=== PATIENT | female | born 1935 | race Caucasian/White ===

== ENCOUNTER → 2016-11-10 | Outpatient (CLI) | payer MEDICARE, BC ==
[~2016-11-10] MED LIST: ACET-2321 PO; AMLO10TA2 PO; ASPI-557 PO; ASPI-917 PO; BIFI4CAP PO; BOTOX IM; CLON0.5T4 PO; FURO20TA4 PO; HYDR-4246 PO; LEVO50TA11 PO; LINA145C PO; LISI-621 PO; OXYC5TAB84 PO; POLY17PO6 PO; POTA20TA10 PO; [UNRECOGNIZED DRUG - CODE] PO
[2016-11-10 12:20] LABS: ALBUMIN 4.1 G/DL (3.5-5.0); ALBUMIN/GLOBULIN RATIO 1.6 RATIO (1.1-2.2); ALKALINE PHOSPHATASE 87 U/L (38-126); ALT (SGPT) 35 U/L (9-52); ANION GAP 11 MEQ/L (5-15); AST (SGOT) 24 U/L (14-36); BUN/CREATININE RATIO 35 RATIO (6-26); CALCIUM 9.9 MG/DL (8.4-10.2); CHLORIDE 99 MEQ/L (98-107); CO2 - CARBON DIOXIDE 29 MEQ/L (22-30); CREATININE 0.8 MG/DL (0.7-1.2); GLOMERULAR FILTRATION RATE 69; GLUCOSE 98 MG/DL (65-110); LDH 480 U/L (313-618); MAGNESIUM 2.3 MG/DL (1.6-2.3); POTASSIUM 4.5 MEQ/L (3.6-5); SODIUM 139 MEQ/L (134-144); TOTAL PROTEIN 6.6 G/DL (6.3-8.2)
[2016-11-10 13:14] LABS: BASOPHILS % (AUTO) 0.2 % (0-2); EOSINOPHILS # (AUTO) 0.1 T/MM3 (0-0.5); EOSINOPHILS % (AUTO) 0.8 % (0-4); HCT - HEMATOCRIT 44.3 % (36-46); HGB - HEMOGLOBIN 13.9 GM/DL (12-16); IMMATURE GRANULOCYTE # (AUTO) 0.02 T/MM3 (0.00-0.03); IMMATURE GRANULOCYTE % (AUTO) 0.2 % (0.0-0.5); LYMPHOCYTES # (AUTO) 1.5 T/MM3 (1-4.8); LYMPHOCYTES % (AUTO) 15.8 % (23-45); MEAN CORPUSCULAR HGB 31.2 UUG (26-34); MEAN CORPUSCULAR HGB CONC(MCHC 31.4 GM/DL (31-37); MEAN CORPUSCULAR VOLUME 99.3 UM3 (80-100); MEAN PLATELET VOLUME 9.7 UM3 (9.4-12.4); MONOCYTES # (AUTO) 0.9 T/MM3 (0-0.8); MONOCYTES % (AUTO) 9.1 % (0-9.0); NEUTROPHILS #(AUTO)-ABSOLUTE 7.1 T/MM3 (1.8-7.7); NEUTROPHILS % (AUTO) 73.9 % (33-66); RED BLOOD COUNT 4.46 M/MM3 (4.00-5.20); WBC - WHITE BLOOD COUNT 9.6 T/MM3 (4.5-11.0)
== END ==
LOC: LAB 11:48
PROVIDERS: ATTEND Internal Medicine Hematology & Oncology
DX: D37.8 Neoplasm of uncertain behavior of other specified digestive organs (principal); R94.5 Abnormal results of liver function studies
CPT/HCPCS: 36415; 80053; 83615; 83735; 85025; 86301

== ENCOUNTER 2017-04-09 04:47 | Inpatient (IN) ==
[2017-04-09 05:55] VITALS: BMI 28.5
[2017-04-09] MEDS ORDERED: NOZIN NASAL SWAB NAS ONE ×2 (06:00→09:54)
[2017-04-09] MEDS ORDERED: METOCLOPRAMIDE 10mg/2ml INJECTION IVP ONE (06:00)
[2017-04-09] MEDS ORDERED: TRANEXAMIC ACID 1,000 MG in NS 100 ML IV ONE ×2 (06:00→07:00)
[2017-04-09] MEDS ORDERED: FAMOTIDINE PB 20 MG/50 ML BAG IV ONE (06:00)
[2017-04-09] MEDS ORDERED: ACETAMINOPHEN 500 MG TABLET PO ONE (06:00)
[2017-04-09] MEDS ORDERED: DEXAMETHASONE 4 MG/ML INJECTION IVP ONE (06:00)
[2017-04-09] MEDS ORDERED: ONDANSETRON 4 MG/2 ML INJECTION IVP ONE (06:00)
[2017-04-09] MEDS ORDERED: LIDOCAINE 1% (10mg/ml) 2mL INJ PF SDV ID ONE (06:00)
[2017-04-09] MEDS: LR 1,000 ML IV SCH ×2 (06:20→08:23)
[2017-04-09] MEDS ORDERED: SEVOFLURANE 250ml LIQUID IH ONE (06:33)
[2017-04-09] MEDS ORDERED: PROPOFOL 500 MG/50 ML VIAL IV ONE (06:34)
[2017-04-09] MEDS ORDERED: VANCOMYCIN 1,000 MG INJECTION ONE (06:43)
--- NOTE | 2017-04-09 06:43 | Anesthesia Preoperative Report ---
Anesthesia Preoperative Record - Date and Time Date: 04/09/17 Preoperative Diagnosis: LT TKA M17.12 Proposed Procedure: left TKA NPO Since Date: 04/09/17 NPO Since Time: 06:41 Allergies/Adverse Reactions: Allergies Allergy/AdvReac Type Severity Reaction Status Date / Time No Known Allergies Allergy Unverified 04/09/17 05:57 - Vital Signs Vital Signs: Temperature 97.9 F 04/09/17 05:54 Pulse Rate 87 04/09/17 05:54 Respiratory Rate 19 04/09/17 05:54 Blood Pressure 143/86 H 04/09/17 05:54 Pulse Oximetry 92 04/09/17 05:54 Height and Weight: Height 1.56 m Weight 69.8 kg Body Mass Index 28.5 - Medications Inpatient Medications: Current Medications Cefazolin Sodium (Kefzol) 2 g IVP PREOP ONE Stop: 04/09/17 07:01 Tranexamic Acid 1,000 mg/ (Sodium Chloride) 110 mls @ 660 mls/hr IV INTRAOP ONE Stop: 04/09/17 07:09 Lactated Ringer's (Lactated Ringers) 1,000 mls @ 50 mls/hr IV .Q20H AARON Last Admin: 04/09/17 06:20 Dose: 50 mls/hr Epinephrine HCl 0.25 mg/Bupivacaine HCl 30 ml/Morphine Sulfate 15 mg/Ketorolac Tromethamine 60 mg/Sodium Chloride 65.25 mls @ 1 mls/hr OPSITE INTRAOP ONE PRN Reason: Protocol Stop: 04/12/17 01:14 Sodium Chloride (Iv Flush) 10 - 80 ml IV PRN PRN PRN Reason: [place] Home Medications: Home Medications Medication Instructions Recorded Confirmed Type Amlodipine Besylate 10 mg PO DAILY #0 tab 06/11/16 04/09/17 History Aspirin [Aspir 81] 1 tab PO DAILY #0 tab 06/11/16 04/09/17 History Furosemide 20 mg PO DAILY PRN #0 tab 06/11/16 04/09/17 History Levothyroxine Sodium 50 mcg PO DAILY #0 tab 06/11/16 04/09/17 History Lisinopril 20 mg PO BID #0 06/11/16 04/09/17 History Polyethylene Glycol 3350 [Miralax] 1 packet PO DAILY #0 06/11/16 04/09/17 History Potassium Chloride [K-Dur] 20 meq PO DAILY PRN #0 06/11/16 04/09/17 History clonazePAM [Clonazepam] 0.5 tab PO HS #0 tab 06/11/16 04/09/17 History Calcium Carbonate [Tums Ultra] 1 tab PO QIDPRN PRN #0 07/21/16 04/09/17 History Acetaminophen [Tylenol] 650 mg PO QID PRN 03/12/17 04/09/17 History Beta-Carotene(A)-Vits C,E/Mins 1 each PO DAILY 03/12/17 04/09/17 History [Vision Vitamins] Hydrocodone/APAP 5/325 [[place] 1 - 2 tab PO Q4HPRN PRN 03/12/17 04/09/17 History 5/325] Ibuprofen [Advil] 200 mg PO QID PRN 03/12/17 04/09/17 History Lidocaine HCl [Aspercreme] 1 applic TP QID PRN 03/12/17 04/09/17 History Zoledronic Acid [Reclast] 5 mg IV 1 YEAR 03/12/17 04/09/17 History Tramadol HCl [Ultram] 50 mg PO TID PRN 04/01/17 04/09/17 History Multivitamin [One Daily] 1 each PO DAILY 04/09/17 04/09/17 History - Medical History Cardiovascular: Reports: Abnormal EKG, Hypertension Renal/Endocrine: Reports: Thyroid Disease - Surgical History HEENT Surgeries: Reports: Tonsillectomy GI Surgery/Treatments: Reports: Appendectomy, Cholecystectomy (Lap), Colon Resection (for diverticulitis), Colonoscopy (hx polyps) Musculoskeletal Surgery/Tx: Reports: Total Knee Replacement (Rt TKA ), Other (back surgery X2--not sure what kind) Anesthesia Reactions: None Hx Family Anesthesia Reaction: No History of Motion Sickness: No - Social History Smoking Status: Never smoker Hx Chewing Tobacco Use: No Second Hand Exposure: No Substance Use Type: does not use Alcohol Intake Frequency: does not drink - Pertinent Findings EKG: Sinus Rhythm EKG Ectopy: Bundle Branch Block - Physical Exam Respiratory Exam: Present: lungs clear Cardiovascular Exam: Present: regular rate and rhythm, no murmur - Airway Assessment Mallampati Score: II TMD: 3 Fingerbreadths Neck Extension: good Teeth: chipped teeth/crowns Overall Assessment: no airway concerns - ASA ASA Score: 3 - Plan Regional/Trunk Block: Spinal Peripheral Nerve Block: Saphenous-Right - Discussion Discussion: Discussed risks/options/alternatives of anesthesia and questions answered. Patient consents. Nursing pain assessment noted. Present for Discussion: spouse Attestation Statement: Prior to the delivery of any anesthetic medication, I examined the patient, developed the plan, obtained the patient's consent and discussed the risk and benefits of the procedure with the patient/guardian. - Additional Information Seen by Anesthesia: Yes
[2017-04-09] MEDS ORDERED: CEFAZOLIN 1 G INJECTION IVP ONE (07:00)
[2017-04-09] MEDS ORDERED: VANCOMYCIN 1,000 MG INJECTION IAR ONE (07:33)
[2017-04-09] MEDS ORDERED: EPINEPHrine 0.25 MG, BUPIVACAINE 0.25% PF 30 ML, MORPHINE SULFATE 15 MG, KETOROLAC INJ ... OPSITE ONE (08:00)
--- NOTE | 2017-04-09 08:30 | Operative Note ---
- Procedure Preoperative Diagnosis: Left knee primary degenerative joint disease Postoperative Diagnosis: Same as preoperative diagnosis. Surgeon: Tiana Mcmillan MD Airplane Captain: Eagle Mcdowell Complications: None. Anesthesia: Spinal. Estimated Blood Loss: See Anesthesia Record. Fluids: Please see Anesthesia Record. Description of Procedure: Mrs. Trinidad and her left knee were identified and marked in the preoperative holding area. She was brought back to the operating suite after a saphenous nerve block was placed in the preoperative holding area. Spinal anesthetic was administered and she was placed supine on the operating table. The left lower extremity was prepped and draped in my normal sterile fashion. Timeout was performed. The [email or web address] robot was used during the surgery. She had a correctable valgus deformity with a mild flexion contracture. A standard anterior midline incision followed by medial parapatellar arthrotomy was performed. Anterior fat pad and meniscus were removed. The patella was resurfaced to a size 29. A tibial array was placed in the most inferior aspect of the incision medial to the tibial tubercle. I then placed a second femoral array again using bicortical pins in the distal femoral metaphysis medially. Checkpoints were then placed both in the femur and the tibia. The bone was then registered with the [email or web address] robot. Osteophytes were removed and gaps were captured both 90 and 0 with correction. [email or web address] software was used to balance the knee which took minimal manipulation since she was very correctable. The [email or web address] robotic arm was then used to assist with the bone cuts. Posterior osteophytes and remaining meniscus were removed. Trial components were placed. We used a 3 femur and a 4 tibia with a 9 mm spacer. She tracked well and was well balanced throughout range of motion. The leg was exsanguinated and the tourniquet inflated to 250 mmHg. The bone was prepared for cementing and components were cemented into place and allowed to cure in extension. The tourniquet was let down and hemostasis obtained with electrocautery. The knee was ranged one more time to ensure good stability, balance and patellar tracking. 1 g of vancomycin powder was then placed into the knee joint. The capsulotomy was then closed with #1 Vicryl. I then left my higher level teaching assistant to close the subcutaneous tissue with 2-0 Vicryl. Running 4-0 Monocryl will be used in the subcuticular layer. Dermabond will be used on the skin followed by sterile dressing. After drapes are removed patient will be taken to recovery room under the care of anesthesia.
[2017-04-09] MEDS ORDERED: SALINE FLUSH 10ml SYRINGE ONE (08:36)
[2017-04-09] MEDS ORDERED: EPHEDRINE 50mg/ml INJECTION ONE (08:36)
--- NOTE | 2017-04-09 08:52 | History & Physical Update ---
- History and Physical Update Date: 04/09/17 Update: I evaluated this patient and found no changes in the history and clinical exam findings. The treatment plan and recommendations are also unchanged from the previous documentation.
[2017-04-09] MEDS ORDERED: ROPIVACAINE 0.5% (5mg/ml) 30ml INJ ONE (08:58)
--- NOTE | 2017-04-09 09:13 | Anesthesia Procedure Note ---
Peripheral Nerve Blockade - Procedure Physician: Thomas Mcmillan MD Date: 04/09/17 Surgical Procedure: left TKA Discussion: Discussed risks/options/alternatives of anesthesia and questions answered. Patient consents. Nursing pain assessment noted. Block Start: 09:06 Block Stop: 09:08 Blocked Employed: Adductor Canal Indication: Post-Operative Pain Approach: Left Side Confirmed Position: Supine Patient: Consent, Risks/Benefits Discussed, Informed, Post Block Act. Discussed IV Sedation: No Initial Vital Signs: Temperature 97.9 F 04/09/17 05:54 Temperature Source Oral 04/09/17 05:54 Pulse Rate 87 04/09/17 05:54 Respiratory Rate 19 04/09/17 05:54 Blood Pressure 143/86 H 04/09/17 05:54 Blood Pressure Mean 105 04/09/17 05:54 Blood Pressure Position Sitting 04/09/17 05:54 Pulse Oximetry 92 04/09/17 05:54 Oxygen Delivery Method 04/09/17 05:54 Post Vital Signs: Temperature 97.9 F 04/09/17 05:54 Pulse Rate 87 04/09/17 05:54 Respiratory Rate 19 04/09/17 05:54 Blood Pressure 143/86 H 04/09/17 05:54 Pulse Oximetry 92 04/09/17 05:54 Initial Pain Pain Score: 0 Post Block Pain Score: 0 Ultrasound Used?: Yes - Injectate Ropivacaine (%): 0.5 Ropivacaine (mL): 20 Was Epi 1:200,000 Used?: No Injection: Injection made incrementally with constant monitoring and aspiration every ml
--- NOTE | 2017-04-09 09:39 | XRay Report ---
Indication: postoperative image PROCEDURE: XR knee LT 2V: Encounter: Initial Comparison: March 11, 2017 Findings: Postoperative changes of left total knee replacement are seen. There is expected postoperative subcutaneous gas. No evidence of hardware failure or acute fracture. No retained radiopaque surgical instruments or sponges. Overlying material causing artifact. Impression: New left total knee prosthesis without evidence of immediate complication. .
--- NOTE | 2017-04-09 09:49 | Anesthesia Postoperative Note ---
- Date and Time Date: 04/09/17 Time: 09:47 - Status Patient Participated in Evaluation: Patient Participated in Person Vital Signs: Temperature 97.3 F 04/09/17 09:01 Pulse Rate 76 04/09/17 09:35 Respiratory Rate 19 04/09/17 05:54 Blood Pressure 123/57 04/09/17 09:35 Pulse Oximetry 93 04/09/17 09:35 Respiratory Function: Airway Patent Cardiovascular Function: Regular Pulse EKG: Sinus Rhythm EKG Ectopy: Bundle Branch Block Mental Status: Alert and Oriented Pain Intensity: 0 Hydration: Taking PO Fluids, IV Infusing Complications During Recover: None Apparent - Follow-Up Instructions Instructions: Per Surgeon
[2017-04-09] MEDS ORDERED: ONDANSETRON 4 MG/2 ML INJECTION IVP PRN (09:54)
[2017-04-09] MEDS ORDERED: ACETAMINOPHEN 325 MG TABLET PO PRN (09:54)
[2017-04-09] MEDS ORDERED: DiphenhydrAMINE 25 MG CAPSULE PO PRN (09:54)
[2017-04-09] MEDS ORDERED: DiphenhydrAMINE 50 MG/ML INJECTION IVP PRN (09:54)
[2017-04-09] MEDS ORDERED: NAPROXEN 220 MG TABLET PO PRN (09:54)
[2017-04-09] MEDS ORDERED: FUROSEMIDE 20 MG TABLET PO PRN (09:54)
[2017-04-09] MEDS ORDERED: LEVOTHYROXINE 50 MCG TABLET PO SCH (09:54)
[2017-04-09] MEDS ORDERED: Oxycodone *IR* 5 MG TABLET PO PRN (09:54)
[2017-04-09] MEDS ORDERED: AMLODIPINE 10 MG TABLET PO SCH ×2 (09:54→21:00)
[2017-04-09] MEDS ORDERED: LORazepam 1 MG TABLET PO PRN (09:54)
[2017-04-09] MEDS: POLYETHYL GLYCOL 3350 17gm PACKET PO SCH (10:09)
[2017-04-09] MEDS: NS 1,000 ML IV SCH ×2 (10:10→14:17)
[2017-04-09] MEDS: DOCUSATE SODIUM 100 MG CAPSULE PO SCH ×2 (10:10→21:17)
[2017-04-09] MEDS: LISINOPRIL 20 MG TABLET PO SCH ×2 (10:10→21:24)
[2017-04-09] MEDS: NOZIN NASAL SWAB NAS SCH ×2 (14:43→21:29)
[2017-04-09] MEDS ORDERED: SALINE FLUSH 10ml SYRINGE IV PRN (15:12)
[2017-04-09] MEDS: CEFAZOLIN 2 G in NS 100 ML IV SCH ×2 (16:28→22:57)
[2017-04-09] MEDS ORDERED: SENNOSIDES 8.6 MG TABLET PO SCH (21:00)
[2017-04-09] MEDS ORDERED: ClonazePAM 0.5 MG TABLET PO SCH (21:00)
[2017-04-09] MEDS ORDERED: ACETAMINOPHEN 325 MG TABLET PO SCH (21:00)
[2017-04-09] MEDS: ASPIRIN *EC* 81 MG TABLET PO SCH (21:23)
[2017-04-10] MEDS: NS 1,000 ML IV SCH (04:14)
--- NOTE | 2017-04-10 06:20 | Orthopedic Progress Note ---
Date: Subjective/Severity of Illness: Imelda is doing well. Pain is controlled. She had some confusion overnight but thought it was from the Roxicodone and anesthesia. Confusion resolved this AM. No CP or SOA. She has been with good tolerance. Orthopedic Objective PO Vital signs: Temperature 98.3 F 04/10/17 03:00 Pulse Rate 89 04/10/17 03:00 Respiratory Rate 15 04/10/17 03:00 Blood Pressure 127/66 04/10/17 03:00 Pulse Oximetry 97 04/10/17 03:00 Height and Weight: Height 5 ft 1.5 in Weight 153 lb 14.122 oz Body Mass Index 28.5 - Constitutional General Appearance: Present: alert, orientated x3, no acute distress - Respiratory Exam Present: non-labored - Extremities Exam Extremities: Present: pulses intact, normal capillary refill - Surgical Site Incision: Mepilex dressing intact, no drainage - Integumentary Exam Present: pink, warm, dry - Neurological Exam Present: no deficits - Psychiatric Exam Present: alert, oriented, normal affect - Labs Result Diagrams: 04/10/17 04:19 04/10/17 04:19 Abnormal lab results 04/10/17 04/10/17 Range/Units 04:19 04:19 WBC 14.3 H (4.5-11.0) T/MM3 RBC 3.42 L (4.00-5.20) M/MM3 Hgb 10.6 L (12-16) GM/DL Hct 33.9 L (36-46) % Calcium 8.2 L (8.4-10.2) MG/DL H & H 04/10/17 Range/Units 04:19 Hgb 10.6 L (12-16) GM/DL Hct 33.9 L (36-46) % Orthopedic Assessment and Plan (1) Primary osteoarthritis of left knee Status: Acute Assessment and Plan: Current anti-coagulation protocol for VTE prophylaxis. SCD's. Change from Roxicodone to Hydrocodone per pt request. PT/OT services to improve independent function. Discharge Planning per Case Management. WBC is mildly elevated but she is afebrile and has no s/sx of infection Likely a stress response. Monitor.. - Anticoagulation Therapy Anticoagulation: other Hospital Course Summary Disclaimer: The visit summary below is not to be considered part of the above Progress Note.
[2017-04-10] MEDS: NOZIN NASAL SWAB NAS SCH ×2 (06:28→14:45)
[2017-04-10] MEDS ORDERED: LEVOTHYROXINE 50 MCG TABLET PO SCH (06:30)
[2017-04-10] MEDS ORDERED: HYDROCODONE/APAP 7.5 MG/325 MG TABLET PO PRN (07:31)
[2017-04-10] MEDS: POLYETHYL GLYCOL 3350 17gm PACKET PO SCH (08:34)
[2017-04-10] MEDS: LISINOPRIL 20 MG TABLET PO SCH (08:34)
[2017-04-10] MEDS: ASPIRIN *EC* 81 MG TABLET PO SCH (08:35)
[2017-04-10] MEDS: DOCUSATE SODIUM 100 MG CAPSULE PO SCH (08:35)
[2017-04-10] MEDS ORDERED: SENNOSIDES 8.6 MG TABLET PO PRN (08:56)
[2017-04-10 11:45] VITALS: BP 114/54; PULSE 66; RESP 18; TEMP 98.2; O2SAT 91
--- NOTE | 2017-04-10 13:44 | Discharge Summary ---
Orthopedic Discharge Info Date of admission: 04/09/17 04:47 Primary care physician: SATHYA RASHID Attending Physician: Sathya Mcmillan MD Consults: 04/09/17 IRU Screening [Inpatient Rehab Screening] [CONS] Routine Screen requested by:: Family/Patient Comment Text:: Left TKA today, patient and interested in a rehab setting, concerned about being sent home too early. 04/09/17 05:33 Consult to Anesthesiology [CONS] Routine Consulting Provider: MAYNOR Jones Reason For Exam: Preoperative Assessment 04/09/17 09:54 Case Management Consult [CONS] Routine Reason For Exam: Discharge Planning DME-[facility] [CONS] Routine Height: 5 ft 1.5 in Weight: 153 lb 14.122 oz Comment: change dressing in 2 weeks Total Joint Outpatient Therapy [CONS] Routine Comment: change dressing in 2 weeks - Discharge Diagnosis (1) Primary osteoarthritis of left knee Status: Acute - Procedures Procedures: Procedures Replacement of Right Knee Joint with Synthetic Substitute, Cemented, Open Approach (07/29/16) - Laboratory Result Diagrams: 04/10/17 04:19 04/10/17 04:19 Laboratory: Abnormal lab results 04/10/17 04/10/17 Range/Units 04:19 04:19 WBC 14.3 H (4.5-11.0) T/MM3 RBC 3.42 L (4.00-5.20) M/MM3 Hgb 10.6 L (12-16) GM/DL Hct 33.9 L (36-46) % Calcium 8.2 L (8.4-10.2) MG/DL H & H 04/10/17 Range/Units 04:19 Hgb 10.6 L (12-16) GM/DL Hct 33.9 L (36-46) % Orthopedic Discharge HPI - HPI Comments This patient was admitted for elective surgical tx of end stage degenerative joint disease that failed to respond to conservative treatment. Further details of this is found in the admission H&P. Orthopedic Hospital Course Hospital course: 04/10/17 13:40 After appropriate preoperative clearance and signing of operative consent, the patient was given IV antibiotics, according to orthopedic protocol. The patient was taken to the operating room and underwent elective joint arthroplasty. Following surgery, antibiotics were discontinued less than 24 hours according to joint protocol. Appropriate anticoagulants were initiated and SCDs added for DVT prevention. The dressing was clean, dry, and intact. Pain control was obtained via multimodal approach. Bowel motivation addressed with scheduled and PRN medications. Early mobilization was initiated through PT services. Discharge arrangements made by a collaborative effort between the patient and Case Management. Follow-up is scheduled in 2-3 weeks. Discharge instructions given by orthopedic providers and nursing staff at discharge. Discharge condition was good. Ongoing care required?: No Discharge Plan - Med Rec/Dispo Referrals/Follow Up: Sathya Mcmillan MD [Physician] - 05/04/17 1:15 pm [place] Instructions: [facility] Postop Instructions Prescriptions: New Docusate Sodium [Colace] 100 mg PO BID capsule Hydrocodone/APAP 7.5/325 [[place] 7.5/325] 1 - 2 tab PO Q6H PRN #60 tab PRN Reason: Pain Milk of Magnesia [Mom] 30 ml PO DAILY udc Aspirin *EC* [Ecotrin] 81 mg PO BID #100 tab Continue Levothyroxine Sodium 50 mcg PO DAILY #0 tab Furosemide 20 mg PO DAILY PRN #0 tab PRN Reason: EDEMA Potassium Chloride [K-Dur] 20 meq PO DAILY PRN #0 PRN Reason: EDEMA Polyethylene Glycol 3350 [Miralax] 1 packet PO DAILY #0 Ibuprofen [Advil] 200 mg PO QID PRN PRN Reason: Pain Lidocaine HCl [Aspercreme] 1 applic TP QID PRN PRN Reason: Pain Hydrocodone/APAP 5/325 [[place] 5/325] 1 - 2 tab PO Q4HPRN PRN PRN Reason: Pain Acetaminophen [Tylenol] 650 mg PO QID PRN PRN Reason: Pain Multivitamin [One Daily] 1 each PO DAILY Lisinopril 20 mg PO BID #0 Amlodipine Besylate 10 mg PO DAILY #0 tab clonazePAM [Clonazepam] 0.5 tab PO HS #0 tab Calcium Carbonate [Tums Ultra] 1 tab PO QIDPRN PRN #0 PRN Reason: Acid Reflux Zoledronic Acid [Reclast] 5 mg IV 1 YEAR Beta-Carotene(A)-Vits C,E/Mins [Vision Vitamins] 1 each PO DAILY Tramadol HCl [Ultram] 50 mg PO TID PRN PRN Reason: Pain Discontinued Aspirin [Aspir 81] 1 tab PO DAILY #0 tab - Disposition 01 Discharged Home, Self-Care
[2017-04-11] MEDS ORDERED: BISACODYL 10 MG SUPPOSITORY RECTALLY SCH (20:00)
== END 2017-04-10 15:20 | disposition home or self-care (01) | DRG 470 ==
LOC: SRG 04:47
PROVIDERS: ADMIT Orthopaedic Surgery; ATTEND Orthopaedic Surgery